=== PATIENT | female | born 1990 | race Caucasian/White ===

== ENCOUNTER 2016-08-02 19:10 | Emergency (ER) | payer MEDICAID ==
[2016-08-02 19:17] VITALS: BP 140/74; PULSE 71; RESP 16; TEMP 98.1; O2SAT 98
--- NOTE | 2016-08-02 19:44 | EDPHY ---
General Narrative: CHIEF COMPLAINT: Right lesser toe pain HISTORY OF PRESENT ILLNESS: walk-in this afternoon when she stops the right small toe. Was wearing shoes and stepped on a stool or chair of some sort. Moderate to severe pain only in the small toe. Radiates into the foot. No direct injury to the foot. Worse with palpation or weight-bearing. Improves with rest and elevation. Associated with swelling and ecchymosis. No bleeding. No other associated complaints. No blood thinners or bleeding disorders. PRIOR ORTHO INJURIES: None ESTABLISHED ORTHOPEDIST: none REVIEW OF SYSTEMS: Ten systems reviewed and are negative unless otherwise noted in the HPI EXAMINATION General Appearance: Alert, no distress Head: normocephalic, atraumatic Eyes: Pupils equal and round, no conjunctival pallor or injection ENT, Mouth: Mucous membranes moist Neurological: A&O, sensory symmetric, strength symmetric. Skin: Warm and dry, no rash . Ecchymosis to the right lesser toe. Edema to the right lesser toe. No lacerations or abrasions. Extremities: Tenderness to palpation of the right lesser toe. No tenderness of the mid foot or heel. Range of motion fully intact. Sensory intact. Psychiatric: Mood and affect normal DIFFERENTIAL DIAGNOSES: Including but not limited to Fracture, dislocation, fracture dislocation, sprain, strain, contusion MDM: mechanical injury with pain in the right lesser toe. Appearance is consistent with fracture. The midfoot is normal. Heel is normal. Neurovascular intact. X -rays pending. 7:45 p.m. x-ray as read by me reveals a oblique fracture of the Phalanx of the right small toe. There is no articular involvement. No significant displacement. This is a closed fracture. She will be treated with a postop shoe and referral to Orthopedics for definitive care. She is comfortable with this plan and discharged home stable condition neurovascular intact ED Precautions: Worsening pain. Erythema, edema, cyanosis, pallor, paresthesia or anesthesia. SUPERVISION: This patient was independently evaluated without the aide of supervising physician. - History Smoking Status: Former smoker - Objective Vital Signs: Initial Vital Signs Temperature (C) 98.1 F 08/02/16 19:14 Heart Rate 71 08/02/16 19:14 Respiratory Rate 16 08/02/16 19:14 Blood Pressure 140/74 H 08/02/16 19:14 O2 Sat (%) 98 08/02/16 19:14 O2 Delivery Mode Room Air Allergies/Adverse Reactions: No Known Allergies Allergy (Verified 01/26/12 22:19) Home Medications: Medication Instructions Recorded OXcarbazepine [Trileptal 300mg 300 mg PO BID 12/17/11 (RX)] Implanon Lue 01/26/12 Hydrocodone/APAP 5/325 [[place] 1 - 2 tab PO Q4H PRN #10 tab 08/02/16 5/325 (*)] Departure - Departure Disposition: Home, Routine, Self-Care Clinical Impression: Displaced fracture of lesser toe of right foot Qualifiers: Encounter type: initial encounter Fracture type: closed Phalanx: unspecified phalanx Qualified Code(s): S92.501A - Displaced unspecified fracture of right lesser toe(s), initial encounter for closed fracture Condition: Good Instructions: Toe Fracture (ED) Additional Instructions: follow-up with Orthopedics for definitive care. Return to the ER for worsening pain, numbness or tingling Referrals: [facility] [Other] - As per Instructions Nuno Meng MD [Medical Doctor] - As per Instructions Prescriptions: Hydrocodone/APAP 5/325 [[place] 5/325 (*)] 1 - 2 tab PO Q4H PRN #10 tab PRN Reason: Pain, Moderate
== END 2016-08-02 20:02 | disposition home or self-care (01) ==
DX: S92.501A Displaced unspecified fracture of right lesser toe(s), initial encounter for closed fracture (principal); Z87.891 Personal history of nicotine dependence; W22.8XXA Striking against or struck by other objects, initial encounter
CPT/HCPCS: L3260

== ENCOUNTER → 2016-11-10 | Outpatient (CLI) | payer MEDICAID ==
[~2016-11-10] MED LIST: GADOBUTROL 10 ML VIAL IVP ONE
== END ==
LOC: FIMAGING 07:03
PROVIDERS: ATTEND Surgery
DX: Z80.3 Family history of malignant neoplasm of breast (principal); Z12.31 Encounter for screening mammogram for malignant neoplasm of breast
CPT/HCPCS: 0159T; A9585; C8908